=== PATIENT | female | born 1980 | race Caucasian/White ===

== ENCOUNTER 2019-10-11 15:29 | Emergency (ER) | payer SELFPAY ==
[2019-10-11] MEDS ORDERED: IV NORMAL SALINE 1000ML BAG 1,000 ML IV SCH (15:50)
--- NOTE | 2019-10-11 15:53 | PHYS DOC ---
Adult General Chief Complaint Chief Complaint: ABDOMINAL PAIN HPI HPI Patient is a 39 year old female who presents with patient states that today she's had a pain that is a stabbing cramping pain in the left lower abdomen tenderness, and go 6 times today. She states she has not had any abnormal stools or seen blood in her stools but that she is on her period. Patient states she has a little bit of nausea but no vomiting or fevers or body aches or recent illnesses or recent antibiotics. She states in the past she's had diverticulitis and had have a bowel resection. She is worried that her diverticulitis is acting up. She states she just moved here does not currently have a doctor to go to. At this time she has no pain. She states she has had some burning upon urination that she's noticed this week. Review of Systems Review of Systems GI: LLQ abdominal pain, nausea, denies vomiting, bloody stools or diarrhea [] All other systems were reviewed and found to be within normal limits, except as documented in this note. Current Medications Current Medications Current Medications Medications (Trade) Dose Ordered Sig/Callie Start Time Stop Time Status Last Admin Dose Admin Fentanyl Citrate (Fentanyl 2ml Vial) 50 mcg 1X ONCE 10/11/19 16:45 10/11/19 16:46 DC 10/11/19 16:23 50 MCG Iohexol (Omnipaque 240 Mg/ml) 30 ml 1X ONCE 10/11/19 17:30 10/11/19 17:31 DC 10/11/19 17:27 30 ML Iohexol (Omnipaque 300 Mg/ml) 75 ml 1X ONCE 10/11/19 16:45 10/11/19 16:46 DC 10/11/19 17:27 75 ML Ondansetron HCl (Zofran) 4 mg 1X ONCE 10/11/19 16:30 10/11/19 16:31 DC 10/11/19 16:10 4 MG Sodium Chloride 1,000 ml @ 1,000 mls/hr Q1H 10/11/19 15:50 10/11/19 16:49 DC 10/11/19 16:09 1,000 MLS/HR Allergies Allergies Allergies Coded Allergies Type Severity Reaction Last Updated Verified Penicillins Allergy Unknown Hives 10/11/19 Yes haloperidol Allergy Unknown Swelling 10/11/19 Yes Physical Exam Physical Exam Constitutional: Well developed, well nourished, no acute distress, non-toxic appearance. [] HENT: Normocephalic, atraumatic, bilateral external ears normal, oropharynx moist, no oral exudates, nose normal. [] Eyes: PERRLA, EOMI, conjunctiva normal, no discharge. [] Neck: Normal range of motion, no tenderness, supple, no stridor. [] Cardiovascular:Heart rate regular rhythm, no murmur [] Lungs & Thorax: Bilateral breath sounds clear to auscultation [] Abdomen: Bowel sounds normal, soft, no tenderness, no masses, no pulsatile masses. [] Skin: Warm, dry, no erythema, no rash. [] Back: No tenderness, no CVA tenderness. [] Extremities: No tenderness, no cyanosis, no clubbing, ROM intact, no edema. [] Neurologic: Alert and oriented X 3, normal motor function, normal sensory function, no focal deficits noted. [] Psychologic: Affect normal, judgement normal, mood normal. Normal Physical Exam [] Current Patient Data Vital Signs Vital Signs Date Time Temp Pulse Resp B/P (MAP) Pulse Ox O2 Delivery O2 Flow Rate FiO2 10/11/19 16:23 14 10/11/19 15:44 97.8 74 119/63 (81) 100 Room Air 97.8 Lab Values Laboratory Tests Test 10/11/19 15:40 10/11/19 16:01 Urine Collection Type Unknown Urine Color Yellow Urine Clarity Clear Urine pH 6.0 Urine Specific [place] 1.025 Urine Protein Negative mg/dL (NEG-TRACE) Urine Glucose (UA) Negative mg/dL (NEG) Urine Ketones (Stick) Negative mg/dL (NEG) Urine Blood Moderate (NEG) Urine Nitrite Negative (NEG) Urine Bilirubin Negative (NEG) Urine Urobilinogen Dipstick 0.2 mg/dL (0.2 mg/dL) Urine Leukocyte Esterase Large (NEG) Urine RBC 1-2 /HPF (0-2) Urine WBC >40 /HPF (0-4) Urine Squamous Epithelial Cells Few /LPF Urine Bacteria Few /HPF (0-FEW) Urine Mucus Slight /LPF Urine Opiates Screen Neg (NEG) Urine Methadone Screen Neg (NEG) Urine Barbiturates Neg (NEG) Urine Phencyclidine Screen Neg (NEG) Urine Amphetamine/Methamphetamine Neg (NEG) Urine Benzodiazepines Screen Neg (NEG) Urine Cocaine Screen Neg (NEG) Urine Cannabinoids Screen Neg (NEG) Urine Ethyl Alcohol Neg (NEG) White Blood Count 8.4 x10^3/uL (4.0-11.0) Red Blood Count 4.11 x10^6/uL (3.50-5.40) Hemoglobin 13.0 g/dL (12.0-15.5) Hematocrit 38.5 % (36.0-47.0) Mean Corpuscular Volume 94 fL (79-100) Mean Corpuscular Hemoglobin 32 pg (25-35) Mean Corpuscular Hemoglobin Concent 34 g/dL (31-37) Red Cell Distribution Width 12.6 % (11.5-14.5) Platelet Count 360 x10^3/uL (140-400) Neutrophils (%) (Auto) 59 % (31-73) Lymphocytes (%) (Auto) 32 % (24-48) Monocytes (%) (Auto) 6 % (0-9) Eosinophils (%) (Auto) 1 % (0-3) Basophils (%) (Auto) 1 % (0-3) Neutrophils # (Auto) 5.0 x10^3/uL (1.8-7.7) Lymphocytes # (Auto) 2.7 x10^3/uL (1.0-4.8) Monocytes # (Auto) 0.5 x10^3/uL (0.0-1.1) Eosinophils # (Auto) 0.1 x10^3/uL (0.0-0.7) Basophils # (Auto) 0.1 x10^3/uL (0.0-0.2) Prothrombin Time 11.0 SEC (11.7-14.0) L Prothrombin Time INR 0.8 (0.8-1.1) Sodium Level 137 mmol/L (136-145) Potassium Level 3.9 mmol/L (3.5-5.1) Chloride Level 103 mmol/L (98-107) Carbon Dioxide Level 26 mmol/L (21-32) Anion Gap 8 (6-14) Blood Urea Nitrogen 17 mg/dL (7-20) Creatinine 0.8 mg/dL (0.6-1.0) Estimated GFR (Cockcroft-Gault) 79.4 BUN/Creatinine Ratio 21 (6-20) H Glucose Level 91 mg/dL (70-99) Calcium Level 8.7 mg/dL (8.5-10.1) Total Bilirubin 0.2 mg/dL (0.2-1.0) Aspartate Amino Transferase (AST) 16 U/L (15-37) Alanine Aminotransferase (ALT) 13 U/L (14-59) L Alkaline Phosphatase 103 U/L (46-116) Total Protein 7.7 g/dL (6.4-8.2) Albumin 3.8 g/dL (3.4-5.0) Albumin/Globulin Ratio 1.0 (1.0-1.7) Lipase 152 U/L (73-393) Laboratory Tests 10/11/19 16:01 Laboratory Tests 10/11/19 16:01 EKG EKG [] Radiology/Procedures Radiology/Procedures [] Impressions: [facility] [id number] [place] [address] IMAGING REPORT Signed PATIENT: TYESHA HANSON ACCOUNT: [id number] : 1980 LOCATION: ER AGE: 39 SEX: F EXAM STATUS: REG ER ORD. PHYSICIAN: TRISH PALOMINO APRN REASON: LLQ abd pain. HX DIVERTICULITIS WITH RESECTION PROCEDURE: CT ABD PELV W/ORAL&IV CONTRAST Study: CT abdomen/pelvis with intravenous contrast Indication: Left lower quadrant abdominal pain. Provided history of diverticulitis with resection. Comparison: None available. Technique: Helical CT imaging performed of the abdomen and pelvis after the intravenous administration of 75 cc Omnipaque 300 contrast. Sagittal and coronal reformats were obtained. One or more of the following individualized dose reduction techniques were utilized for this examination: 1. Automated exposure control 2. Adjustment of the mA and/or kV according to patient size 3. Use of iterative reconstruction technique. Findings: Fatty infiltration along the falciform ligament. Subcentimeter focus of low attenuation within the lower right hepatic lobe, image 33 series 2, most likely a cyst or hemangioma given patient age. Unremarkable gallbladder. Mildly prominent common bile duct though tapering normally at the pancreatic head. Unremarkable pancreas, spleen and adrenal glands. Unremarkable kidneys and collecting system. Unremarkable urinary bladder. The uterus and ovaries are within normal limits for age. Small collapsing cyst in the region of the left ovary, image 59 series 2. A tampon is noted. Status post partial colectomy with the anastomosis seen at the central lower abdomen. Scattered diverticuli without findings of diverticulitis. The appendix is segmentally visualized and normal where seen. Nonobstructed small bowel. The stomach is unremarkable. Severe disc space collapse at L5-S1. Disc bulge at this level though the central canal appears patent. Impression: 1. Status post partial colectomy without complicating features. Diverticulosis involving the residual colon but without findings of diverticulitis. Collectively, no acute abnormality seen throughout the abdomen or pelvis. 2. Small collapsing left ovarian cyst. The CT appearance of the reproductive organs is within normal limits for age. 3. 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 Electronically signed by: ORIANA GALEANO MD (10/11/2019 5:48 PM) [facility] DICTATED and SIGNED BY: ORIANA GALEANO MD DATE: 10/11/191747 Course & Med Decision Making Course & Med Decision Making Alert and oriented. Speaks in full clear sentences. Ambulatory with a steady gait. Skin pink warm and dry. Vital signs within normal limits. Afebrile. Abdomen is soft and nontender. Lungs are clear to station all lobes. She denies any abnormal vaginal discharge or sexually transmitted diseases. She states that her stools have been slightly loose but that is normal for her and especially for when she is on her menses. She has not seen any blood in her stool prior to starting her menses nor does she think there is blood in her stool at this time. Dragon Disclaimer Dragon Disclaimer This electronic medical record was generated, in whole or in part, using a voice recognition dictation system. Departure Departure Impression: Primary Impression: UTI (urinary tract infection) Additional Impression: Ovarian cyst Disposition: 01 HOME, SELF-CARE Condition: STABLE Referrals: UNKNOWN PCP NAME (PCP) OCTAVIO LONG Jr, MD Patient Instructions: Ovarian Cyst, Ueme-py-Mavg, Urinary Tract Infection Additional Instructions: Follow-up with your [facility] [employer] doctor or primary care provider. Take medications as prescribed. Scripts Hydrocodone/Apap 5-325 (NORCO 5-325 TABLET) 1 Each Tablet 1 TAB PO PRN Q6HRS PRN for PAIN, #8 TAB 0 Refills Prov: TRISH PALOMINO APRN 10/11/19 Cephalexin (KEFLEX) 500 Mg Capsule 1 CAP PO BID for 7 Days, #14 CAP 0 Refills Prov: TRISH PALOMINO APRN 10/11/19 Problem Qualifiers Primary Impression: UTI (urinary tract infection) Urinary tract infection type: site unspecified Hematuria presence: with hematuria Qualified Codes: N39.0 - Urinary tract infection, site not specified; R31.9 - Hematuria, unspecified Additional Impression: Ovarian cyst Laterality: left Qualified Codes: N83.202 - Unspecified ovarian cyst, left side TRISH PALOMINO APRN Oct 11, 2019 15:53
[2019-10-11 16:13] LABS: BASO # 0.1 x10^3/uL (0.0-0.2); BASO % 1 % (0-3); EOS # 0.1 x10^3/uL (0.0-0.7); EOS % 1 % (0-3); HEMATOCRIT 38.5 % (36.0-47.0); LYMPH # 2.7 x10^3/uL (1.0-4.8); LYMPH % 32 % (24-48); MEAN CORPUSCULAR HEMOGLOBIN 32 pg (25-35); MEAN CORPUSCULAR HGB CONC 34 g/dL (31-37); MEAN CORPUSCULAR VOLUME 94 fL (79-100); MONO # 0.5 x10^3/uL (0.0-1.1); MONO % 6 % (0-9); NEUT % 59 % (31-73); PLATELET COUNT 360 x10^3/uL (140-400); RED BLOOD COUNT 4.11 x10^6/uL (3.50-5.40); RED CELL DISTRIBUTION WIDTH 12.6 % (11.5-14.5); WHITE BLOOD COUNT 8.4 x10^3/uL (4.0-11.0)
[2019-10-11 16:15] LABS: BILIRUBIN,URINE NEGATIVE (NEG); CLARITY,URINE CLEAR; COLOR,URINE YELLOW; NITRITE,URINE NEGATIVE (NEG); PROTEIN,URINE NEGATIVE (NEG-TRACE); UROBILINOGEN,URINE 0.2 mg/dL (0.2 mg/dL)
[2019-10-11 16:21] LABS: BARBITURATES NEG (NEG); BENZODIAZEPINES NEG (NEG); CANNABINOIDS NEG (NEG); COCAINE NEG (NEG); METHADONE NEG (NEG); OPIATES NEG (NEG); PHENCYCLIDINE NEG (NEG)
[2019-10-11 16:24] LABS: CALCIUM 8.7 mg/dL (8.5-10.1); CREATININE 0.8 mg/dL (0.6-1.0); GFR 79.4; POTASSIUM 3.9 mmol/L (3.5-5.1)
[2019-10-11 16:25] LABS: AMPHETAMINE/METHAMPHETAMINE NEG (NEG)
[2019-10-11 16:30] LABS: ALBUMIN 3.8 g/dL (3.4-5.0); TOTAL BILIRUBIN 0.2 mg/dL (0.2-1.0); TOTAL PROTEIN 7.7 g/dL (6.4-8.2)
[2019-10-11] MEDS ORDERED: ONDANSETRON PF 4 MG/2 ML VIAL. IV ONE (16:30)
[2019-10-11 16:43] LABS: BACTERIA,URINE FEW /HPF (0-FEW); SQUAMOUS EPITHELIAL CELL,UR FEW /LPF; WBC,URINE >40 /HPF (0-4)
[2019-10-11] MEDS ORDERED: IOHEXOL 300 MG/ML 100ML VIAL. IV ONE (16:45)
[2019-10-11] MEDS ORDERED: fentaNYL PF VIAL 100 MCG/2 ML VIAL IVP ONE (16:45)
[2019-10-11] MEDS ORDERED: IOHEXOL 240 MG/ML 50ML VIAL. PO ONE (17:30)
--- NOTE | 2019-10-11 17:51 | RAD ---
Study: CT abdomen/pelvis with intravenous contrast Indication: Left lower quadrant abdominal pain. Provided history of diverticulitis with resection. Comparison: None available. Technique: Helical CT imaging performed of the abdomen and pelvis after the intravenous administration of 75 cc Omnipaque 300 contrast. Sagittal and coronal reformats were obtained. One or more of the following individualized dose reduction techniques were utilized for this examination: 1. Automated exposure control 2. Adjustment of the mA and/or kV according to patient size 3. Use of iterative reconstruction technique. Findings: Fatty infiltration along the falciform ligament. Subcentimeter focus of low attenuation within the lower right hepatic lobe, image 33 series 2, most likely a cyst or hemangioma given patient age. Unremarkable gallbladder. Mildly prominent common bile duct though tapering normally at the pancreatic head. Unremarkable pancreas, spleen and adrenal glands. Unremarkable kidneys and collecting system. Unremarkable urinary bladder. The uterus and ovaries are within normal limits for age. Small collapsing cyst in the region of the left ovary, image 59 series 2. A tampon is noted. Status post partial colectomy with the anastomosis seen at the central lower abdomen. Scattered diverticuli without findings of diverticulitis. The appendix is segmentally visualized and normal where seen. Nonobstructed small bowel. The stomach is unremarkable. Severe disc space collapse at L5-S1. Disc bulge at this level though the central canal appears patent. Impression: 1. Status post partial colectomy without complicating features. Diverticulosis involving the residual colon but without findings of diverticulitis. Collectively, no acute abnormality seen throughout the abdomen or pelvis. 2. Small collapsing left ovarian cyst. The CT appearance of the reproductive organs is within normal limits for age. 3. 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 Electronically signed by: ORIANA GALEANO MD (10/11/2019 5:48 PM) [place] [id number]
[2019-10-11 18:00] VITALS: BP 98/49
[2019-10-11] MEDS ORDERED: CEPH-264 PO (18:13)
[2019-10-11] MEDS ORDERED: HYDR-3164 PO (18:13)
[2019-10-11] MEDS ORDERED: KETOROLAC 30 MG/ML VIAL. IVP ONE (18:15)
== END 2019-10-11 18:45 | disposition home or self-care (01) ==
LOC: ER 15:29
DX: N39.0 Urinary tract infection, site not specified (principal); R31.9 Hematuria, unspecified; N83.292 Other ovarian cyst, left side; R11.0 Nausea; R10.32 Left lower quadrant pain; Z88.0 Allergy status to penicillin; Z88.8 Allergy status to other drugs, medicaments and biological substances; Z90.49 Acquired absence of other specified parts of digestive tract; Z79.899 Other long term (current) drug therapy
CPT/HCPCS: 36415; 74177; 80053; 80307; 81001; 81025; 83690; 85025; 85610; 87086; 96374; 96375; 99285; J1885; J2405; J3010; J7030; Q9966; Q9967; 87186